=== PATIENT | female | born 1990 | race African-American/Black ===

== ENCOUNTER 2019-09-08 01:45 | Emergency (ER) | payer SELFPAY ==
[2019-09-08] MEDS ORDERED: IPRATROPIUM/ALBUTEROL 0.5-2.5 MG/3 ML AMPUL NEB ONE ×2 (02:53→05:54)
--- NOTE | 2019-09-08 04:06 | RADIOLOGY REPORT (SQ) ---
EXAM DESCRIPTION: XR CHEST 2 VIEWS COMPLETED DATE/TME: 09/08/2019 00:00 CLINICAL HISTORY: SOB COMPARISON: 04/08/2015 FINDINGS: Frontal and lateral views of the chest. Cardiomediastinal silhouette: Normal size and contour. Lungs: No consolidation, pneumothorax, or pleural effusion. Bones: No acute osseous abnormality. Upper abdomen: No abnormality identified. IMPRESSION: 1. No acute pulmonary process identified.
[2019-09-08] MEDS ORDERED: ALBUTEROL SULFATE HFA (90 MCG/PUFF) 8 GM MDI (1 MDI/ER DISP) IH ONE (06:32)
[2019-09-08] MEDS ORDERED: AZITHROMYCIN 250 MG TABLET PO ONE (06:32)
[2019-09-08] MEDS ORDERED: PREDNISONE 20 MG TABLET PO ONE (06:32)
[2019-09-08 06:33] VITALS: BP 136/86
--- NOTE | 2019-09-08 06:37 | ER Document Report ---
ED Respiratory Problem - General Chief Complaint: Shortness Of Breath Stated Complaint: WHEEZING Time Seen by Provider: 09/08/19 06:22 Mode of Arrival: Ambulatory Information source: Patient, [facility] Records Notes: This 29-year-old female patient comes emergency room with upper respiratory tract infectious symptoms since 08/22/2019. She reports she has had cough, laryngitis, greenyellow sputum, and shortness of breath. She states her shortness of breath would get worse at night. She reports she has had wheezing now for the last 2 to 3 days. She has had chills but is not sure about fever. There has been some nasal congestion. Triage nurse reports the patient had audible wheezing at triage. Nebulizer treatments were ordered, but it appears she did not receive the DuoNeb until about 30 minutes before I went into see her. She states that the breathing treatment did help quite a lot. TRAVEL OUTSIDE OF THE [place] IN LAST 30 DAYS: No - Related Data Allergies/Adverse Reactions: hydrocodone [Hydrocodone] Allergy (Verified 12/07/15 10:57) Pruritis Past Medical History - General Information source: Patient, [facility] Records - Social History Smoking Status: Current Every Day Smoker Cigarette use (# per day): Yes - 1/4 PPD Chew tobacco use (# tins/day): No Smoking Education Provided: No Frequency of alcohol use: None Drug Abuse: None Lives with: Friend Family History: Arthritis, DM, Hypertension, Thyroid Disfunction Patient has suicidal ideation: No Patient has homicidal ideation: No Musculoskeletal Medical History: Reports Hx Arthritis, Reports Hx Musculoskele kenji Deformity, Reports Hx Musculoskeletal Trauma Psychiatric Medical History: Reports: Hx Anxiety, Hx Bipolar Disorder, Hx Depression Past Surgical History: Reports: Hx Dilation and Curettage - x 2 - Immunizations Immunizations up to date: Yes Hx Diphtheria, Pertussis, Tetanus Vaccination: Yes Physical Exam - Vital signs Vitals: Temp Pulse Resp BP Pulse Ox 98.2 F 113 H 20 137/91 H 100 09/08/19 01:53 09/08/19 01:53 09/08/19 01:53 09/08/19 01:53 09/08/19 01:53 Interpretation: Normal - General General appearance: Appears well, Alert In distress: None - HEENT Head: Normocephalic, Atraumatic Eyes: Normal Pupils: PERRL Tympanic membrane: Other - Right TM is pink and full, left TM is occluded by wax. Pharynx: Normal Neck: Normal - Respiratory Respiratory status: No respiratory distress. No: Retractions Breath sounds: Rhonchi, Wheezing - Cardiovascular Rhythm: Regular Heart sounds: Normal auscultation Murmur: No - Abdominal Inspection: Normal - Back Back: Normal - Extremities General upper extremity: Normal inspection General lower extremity: Normal inspection - Neurological Neuro grossly intact: Yes - Psychological Associated symptoms: Normal affect, Normal mood - Skin Skin Temperature: Warm Skin Moisture: Dry Skin Color: Normal Course - Re-evaluation Re-evalutation: 09/08/19 14:26 Patient's wheezes almost completely cleared up after additional breathing treatments. - Vital Signs Vital signs: Temp Pulse Resp BP Pulse Ox 97.4 F 95 18 136/86 H 98 09/08/19 06:32 09/08/19 06:32 09/08/19 06:32 09/08/19 06:32 09/08/19 06:32 - Diagnostic Test Radiology reviewed: Image reviewed, Reports reviewed - Chest x-ray does not show acute cardiopulmonary process. Discharge - Discharge Clinical Impression: Bronchitis with bronchospasm Upper respiratory tract infection Qualifiers: URI type: unspecified URI Qualified Code(s): J06.9 - Acute upper respiratory infection, unspecified Condition: Stable Disposition: HOME, SELF-CARE Additional Instructions: Bronchitis with Bronchospasm (Wheezing) You have bronchitis with bronchospasm (wheezing). Sometimes people de velop wheezing with a chest cold. This occurs either because of an underlying tendency toward asthma or because the virus itself irritates the bronchial tubes. This irritation causes cough, shortness of breath, and wheezing. Emergency treatment of bronchospasm may include adrenaline shots or bronchodilator aerosol. You may feel lightheaded and have a rapid pulse for an hour or two. Rest and get plenty of fluids. At home, we'll treat you with a bronchodilator inhaler. Corticosteroids may be required for some patients. Until you recover, avoid chemical fumes, dusts, pollens, and exercising in very cold or dry air. If you smoke, stop now! Most cases of bronchitis get better without antibiotics. We prescribe antibiotics when we believe bacteria are damaging your airways, or if there's high risk the bronchitis will worsen into pneumonia. Increase your fluid intake. A cool mist humidifier may make your lungs more comfortable. An expectorant (cough medicine that loosens phlegm) can help. Repeated episodes of bronchitis and bronchospasm may result in lung damage -- for example, chronic bronchitis, recurrent pneumonias, or emphysema. If you develop a fever, increased wheezing, chest pain, or severe shortness of breath, you should contact the doctor immediately. Start the prednisone and Zithromax prescriptions tomorrow. Use the albuterol inhaler 2 puffs every 4 hours as needed for wheezing. Try the generic version of Delsym DM to help control your cough. Drink plenty of fluids and get plenty of rest. Follow-up with a local primary care provider if not improving. RETURN TO THE EMERGENCY ROOM IF ANY NEW OR WORSENING SYMPTOMS. Prescriptions: Prednisone [Deltasone 10 mg Tablet] 10 mg PO ASDIR PRN #21 tablet PRN Reason: Azithromycin [Zithromax 250 mg Tablet] 250 mg PO DAILY #4 tablet
== END 2019-09-08 06:48 | disposition home or self-care (01) ==
LOC: ER 01:45
DX: J06.9 Acute upper respiratory infection, unspecified (principal); J40 Bronchitis, not specified as acute or chronic; J98.01 Acute bronchospasm; R06.02 Shortness of breath; R05 Cough; J04.0 Acute laryngitis; R06.2 Wheezing; R09.81 Nasal congestion; F17.210 Nicotine dependence, cigarettes, uncomplicated
CPT/HCPCS: 94640; 99283; 71046; J7512; J3490; J7620